=== PATIENT | male | born 2000 | race Caucasian/White ===

== ENCOUNTER 2020-01-15 12:55 | Emergency (ER) | payer BC ==
[~2020-01-15] VITALS: Ht 188 cm; Wt 109.1 kg
[2020-01-15 13:02] VITALS: TEMP 98.3
[2020-01-15 15:00] VITALS: BP 138/80; PULSE 111
== END 2020-01-15 15:07 | disposition home or self-care (01) ==
LOC: COL.ER 12:55
DX: S06.9X9A Unspecified intracranial injury with loss of consciousness of unspecified duration, initial encounter (principal); S01.111A Laceration without foreign body of right eyelid and periocular area, initial encounter; Z23 Encounter for immunization; Z90.89 Acquired absence of other organs; W01.198A Fall on same level from slipping, tripping and stumbling with subsequent striking against other object, initial encounter; Y92.410 Unspecified street and highway as the place of occurrence of the external cause